=== PATIENT | female | born 1990 | race Caucasian/White ===

== ENCOUNTER 2017-03-25 08:16 | Emergency (ER) | payer OTHER ==
[~2017-03-25] VITALS: Ht 154.9 cm; Wt 82.1 kg
[2017-03-25 08:22] VITALS: BP 129/78
--- NOTE | 2017-03-25 08:30 | NUR ---
26/F BIB SELF C/O VAGINAL DISCHARGE STARTING LAST NIGHT AFTER HAVING SEXUAL INTERCOURSE, DENIES PAIN; DENIES ITCHING. DENIES N/V/D; SKIN IS PINK/WARM/DRY; AAOX4 WITH EVEN AND STEADY GAIT; LUNGS CLEAR BL;PATIENT STATES PAIN OF 0/10 AT THIS TIME; VSS; PATIENT POSITIONED FOR COMFORT; HOB ELEVATED; BEDRAILS UP X2; BED DOWN. ER MD MADE AWARE OF PT STATUS.
[2017-03-25] MEDS ORDERED: ACETAMINOPHEN EXTRA STRENGTH 500 MG TAB PO ONE (08:40)
--- NOTE | 2017-03-25 08:56 | NUR ---
PELVIC EXAM DONE BY DR DOMINGUEZ. PT TOLERATED PROCEDURE WELL.
--- NOTE | 2017-03-25 09:00 | NUR ---
Female Assembler [employer] Starr accompanied female patient for Pelvic Exam.
[2017-03-25 09:18] LABS: APPEARANCE,URINE CLEAR (CLEAR); BILIRUBIN,URINE NEGATIVE (NEGATIVE); BLOOD, URINE NEGATIVE (NEGATIVE); COLOR,URINE YELLOW (YELLOW); LEUKOCYTE ESTERASE ,URINE TRACE (NEGATIVE); NITRITE, URINE NEGATIVE (NEGATIVE); UGLUCOSE NEGATIVE (NEGATIVE)
[2017-03-25 09:31] LABS: RBC,URINE 0-5 (RARE) /HPF (0-5); WBC,URINE 0-5 (RARE) /HPF (0-5)
[2017-03-25 09:38] VITALS: BP 115/72
--- NOTE | 2017-03-25 09:38 | NUR ---
Patient discharged with v/s stable. Written and verbal after care instructions given and explained. Patient alert, oriented and verbalized understanding of instructions. Ambulatory with steady gait. All questions addressed prior to discharge. ID band removed. Patient advised to follow up with PMD. Rx of ROBITUSSIN, ACETAMINOPHEN &FLAGYL given. Patient educated on indication of medication including possible reaction and side effects. Opportunity to ask questions provided and answered.
[2017-03-28 09:07] LABS: CHLAMYDIA TRACHOMATIS AMP DNA Negative (Negative)
== END 2017-03-25 09:38 | disposition home or self-care (01) ==
LOC: MED 08:16
DX: N76.0 Acute vaginitis (principal); R05 Cough; Z88.0 Allergy status to penicillin
CPT/HCPCS: 36415; 81001; 81025; 87210; 87491; 99284

== ENCOUNTER 2017-04-09 20:13 | Emergency (ER) | payer OTHER ==
[~2017-04-09] VITALS: Ht 154.9 cm; Wt 82.1 kg
[2017-04-09 20:20] VITALS: BP 132/89
--- NOTE | 2017-04-10 02:05 | NUR ---
PATIENT LEFT WITHOUT BEING SEEN BY DR. DOMINGUEZ. NO FURTHER CARE PROVIDED FOR PATIENT.
== END 2017-04-10 02:05 | disposition left against medical advice (07) ==
LOC: MED 20:13
DX: N89.8 Other specified noninflammatory disorders of vagina (principal); Z53.21 Procedure and treatment not carried out due to patient leaving prior to being seen by health care provider

== ENCOUNTER 2019-04-12 12:14 | Emergency (ER) | payer SELFPAY ==
[~2019-04-12] VITALS: Ht 154.9 cm; Wt 80.7 kg
[2019-04-12 12:21] VITALS: BP 130/93
--- NOTE | 2019-04-12 12:28 | NUR ---
pt ambulated to 11 with steady gait
--- NOTE | 2019-04-12 12:33 | NUR ---
Jocy pizarro in [facility] - 04/12/19 at 1421 by [facility] PT TO ER BED 11
--- NOTE | 2019-04-12 13:00 | NUR ---
ULTRASOUND AT BEDSIDE.
--- NOTE | 2019-04-12 13:05 | NUR ---
C/O VAGINAL BLEEDING ABOUT A MONTH AGO. 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 REMAINS SPOTTING. BED IN LOW POSITION, SIDE RAIL UP X1. WILL CONTINUE TO MONITOR.
[2019-04-12 13:41] LABS: BASOPHILS % (AUTO) 0.5 % (0.0-2.0); EOSINOPHILS # (AUTO) 0.1 K/uL (0-0.4); EOSINOPHILS % (AUTO) 1.1 % (0.0-4.0); HEMATOCRIT 33.2 % (36-48); HEMOGLOBIN 10.8 g/dL (12.0-16.0); LYMPHOCYTES # (AUTO) 1.7 K/uL (2.5-16.5); LYMPHOCYTES % (AUTO) 27.9 % (20.5-51.1); MEAN CORPUSCULAR HEMOGLOBIN 27 pg (27-31); MEAN CORPUSCULAR HGB CONC 33 g/dL (33-37); MONOCYTES # (AUTO) 0.4 K/uL (0.8-1.0); MONOCYTES % (AUTO) 7.3 % (1.7-9.3); NEUTROPHILS # (AUTO) 3.9 K/uL (1.8-7.7); NEUTROPHILS % (AUTO) 63.2 % (42.2-75.2); PLATELET COUNT (AUTO) 259 K/uL (140-450); RED CELL DISTRIBUTION WIDTH 23.3 % (11.6-13.7); WHITE BLOOD COUNT (AUTO) 6.1 K/uL (4.8-10.8)
[2019-04-12 13:52] LABS: ALBUMIN 3.9 g/dL (3.4-5.0); ANION GAP 11.2 (8-16); CARBON DIOXIDE 25.8 mmol/L (21-32); CREATININE 0.7 mg/dL (0.6-1.3); TOTAL BILIRUBIN 0.3 mg/dL (0.0-1.0)
[2019-04-12 14:29] VITALS: BP 130/93
--- NOTE | 2019-04-12 14:30 | NUR ---
Patient discharged with v/s stable. Written and verbal after care instructions given and explained. Patient verbalized understanding. Ambulatory with steady gait. All questions addressed prior to discharge. Advised to follow up with PMD.
== END 2019-04-12 14:30 | disposition home or self-care (01) ==
LOC: MED 12:14
DX: D25.9 Leiomyoma of uterus, unspecified (principal); N92.1 Excessive and frequent menstruation with irregular cycle; D64.9 Anemia, unspecified; Z88.0 Allergy status to penicillin
CPT/HCPCS: 36415; 76856; 80053; 81002; 81025; 85025; 86886; 86900; 86901; 99284; Q0092